=== PATIENT | male | born 2000 | race Caucasian/White ===

== ENCOUNTER 2020-05-17 08:50 | Day surgery (SDC) | payer OTHER ==
[2020-05-15 14:59] VITALS: BMI 24.4
--- NOTE | 2020-05-16 14:36 | HP ---
HISTORY OF PRESENT ILLNESS: Filiberto Tolentino is a 19-year-old male patient, date of 2000, [employer] student, civil engineering. He is from [place]. He has developed right inguinal hernia. He had a left inguinal hernia repair as a child. Plan is robot mesh repair of right inguinal hernia. He understands risks and benefits and consents. ALLERGIES: NONE. TOBACCO: None. ALCOHOL: Rarely. MEDICATIONS: None routinely. PAST SURGICAL HISTORY: At 2 years old, left inguinal hernia repair. Appendectomy at 16 years of age. REVIEW OF SYSTEMS: Noncontributory. FAMILY HISTORY: Noncontributory. PHYSICAL EXAMINATION: VITAL SIGNS: 186 pounds, height 6 feet 1 inch, 24 BMI. Blood pressure 116/66, pulse 66, temperature 97.3 degrees. HEAD, EARS, EYES, NOSE, AND THROAT: Unremarkable. LUNGS: Clear to auscultation. CARDIAC: Regular rate and rhythm without murmur or gallop. ABDOMEN: Soft, nontender. EXTREMITIES: Unremarkable. : Testicles normal. Left groin without hernia. Right groin hernia on standing, enlarged on Valsalva. ASSESSMENT: Right inguinal hernia. PLAN: Robot mesh repair, outpatient, right inguinal hernia. He understands risks and benefits, consents. Job ID: [id number]
[2020-05-17] MEDS ORDERED: Gabapentin 300 MG CAP ONE (09:13)
[2020-05-17] MEDS ORDERED: Acetaminophen 500 MG TAB ONE (09:13)
[2020-05-17] MEDS ORDERED: Ketorolac Tromethamine 30 MG/ML VIAL ONE (09:13)
[2020-05-17] MEDS ORDERED: Rocuronium Bromide 10 MG/ML (10ML VIAL) ONE (09:30)
[2020-05-17] MEDS ORDERED: Glycopyrrolate 0.2 MG/ML 5 ML SYRINGE ONE (09:30)
[2020-05-17] MEDS ORDERED: PROPOFOL 200 MG/20 ML VIAL ONE (09:30)
[2020-05-17] MEDS ORDERED: Dexamethasone 20 MG/5 ML VIAL ONE (09:30)
[2020-05-17] MEDS ORDERED: Lidocaine 1% PF 5 ML VIAL ONE (09:30)
[2020-05-17] MEDS ORDERED: Ondansetron PF 4 MG/2 ML Vial ONE (09:30)
[2020-05-17] MEDS ORDERED: Midazolam HCl 2 mg/2 ml Vial ONE (11:13)
[2020-05-17] MEDS ORDERED: Lidocaine 1% w/Epinephrine 1:100K 20 ML VIAL ONE (13:28)
[2020-05-17] MEDS ORDERED: Bupivacaine 0.25% HCL 30 ML VIAL ONE (13:28)
[2020-05-17] MEDS ORDERED: Fentanyl 100 MCG/2 ML VIAL ONE ×2 (13:38→13:49)
--- NOTE | 2020-05-17 20:16 | OP ---
DATE OF PROCEDURE: 05/17/2020 PREOPERATIVE DIAGNOSIS: Right inguinal hernia. POSTOPERATIVE DIAGNOSIS: Right inguinal hernia. PROCEDURE PERFORMED: Laparoscopic/robotic repair of right inguinal hernia using a Bard 3DMax large right mesh. ANESTHESIA: General, local 0.25% Marcaine 30 mL mixed with 1% Xylocaine with epinephrine 20 mL. DESCRIPTION OF PROCEDURE: The patient was taken to the operating room, where under general anesthesia, abdomen was clipped of hair, prepared with ChloraPrep and draped in routine fashion. Local anesthetic was infiltrated in the skin and subcutaneous tissue, about all port sites. Negro was placed at the beginning of the procedure and removed at the end. A supraumbilical left of midline incision made, pneumoperitoneum to 15 mmHg obtained with a Veress needle, replacing with an 11 mm balloon port, laparoscope inserted. Left lateral anterior axillary line above the umbilical level incision made and an 8 mm port placed, and right-sided 8 mm port placed and robot docked, positioned, and robot inguinal hernia repair undertaken. Peritoneal flap from the midline to the anterior superior iliac spine on the right, incision made, developing a flap, identifying the David ligament medially, and dissecting retroperitoneum laterally. Cord structures dissected free from the hernia sac, exposing at least 9 to 10 cm of cord structures. Cord structures kept free of harm. Good hemostasis noted. Mesh placed and positioned and secured to David ligament with 2-0 Vicryl suture in the anterior abdominal wall to the right of the inferior epigastric vessels, which were kept free of harm. Mesh secured with 2-0 Vicryl suture. Once mesh properly positioned and good hemostasis noted, peritoneal flap closed with continuous suture of #2-0 Stratafix. [place] and sutures removed, good hernia repair appreciated, pneumoperitoneum reduced. All instruments were removed. Left paramedian anterior rectus fascia approximated with 0 Vicryl and UR needle, and skin over each trocar site approximated with continuous subcuticular suture of 4-0 Monocryl. The patient tolerated the procedure well. Job ID: [id number]
== END 2020-05-17 17:45 | disposition home or self-care (01) ==
LOC: SDC 08:50
PROVIDERS: ATTEND Specialist
PROC: 0YU54JZ Supplement Right Inguinal Region with Synthetic Substitute, Percutaneous Endoscopic Approach (ICD-10-PCS; principal; 2020-05-17)
DX: K40.90 Unilateral inguinal hernia, without obstruction or gangrene, not specified as recurrent (principal); K90.0 Celiac disease
CPT/HCPCS: C1781; J0690; J1100; J1885; J2250; J2405; J2704; J3010; S0020